=== PATIENT | male | born 1950 | race Two or more races ===

== ENCOUNTER 2020-10-18 10:06 | Outpatient (CLI) | payer OTHER | END 2020-10-18 15:00 | disposition home or self-care (01) | LOC: PPH VACUNA 10:06 | PROVIDERS: ATTEND Emergency Medicine Pediatric Emergency Medicine | DX: Z23 Encounter for immunization (principal) ==

== ENCOUNTER 2020-11-08 11:07 | Outpatient (CLI) | payer OTHER | END 2020-11-08 11:08 | disposition home or self-care (01) | LOC: PPH VACUNA 11:07 | PROVIDERS: ATTEND Emergency Medicine Pediatric Emergency Medicine | DX: Z23 Encounter for immunization (principal) ==